=== PATIENT | male | born 1965 | race Caucasian/White ===

== ENCOUNTER 2020-12-11 18:43 | Emergency (ER) | payer MEDICAID, SELFPAY ==
[2020-12-11 18:50] VITALS: BP 135/87; PULSE 76; RESP 16; TEMP 36.5; O2SAT 100
--- NOTE | 2020-12-12 00:05 | PC.NURSE ---
1924 upon entering room to do ekg , noted pt had eloped. checked lobby, did not respond when name called.
== END 2020-12-12 00:05 | disposition left against medical advice (07) ==
PROVIDERS: Emergency Provider Emergency Medicine
DX: M79.89 Other specified soft tissue disorders (principal)
CPT/HCPCS: 93005; 99199

== ENCOUNTER 2021-03-18 11:33 | Emergency (ER) | payer OTHER, SELFPAY ==
[2021-03-18 11:45] VITALS: BP 125/80; PULSE 60; RESP 20; TEMP 36.9; O2SAT 97
--- NOTE | 2021-03-18 11:54 | ED.GENADULT ---
HPI - General Adult General Stated complaint: mahin feet swelling Source: patient Mode of arrival: ambulatory Limitations: no limitations History of Present Illness HPI narrative: Shekhar is a 55M with a PMH of mild tobacco use that presented to the ED with concerns of ankle swelling off an on for about a month. He does not have any today. He rode his bike here from [place] (7 miles away). He has mild lower extremity swelling that comes and goes. It is worse when he sits with his feet dangling. He denies CP, SOB, orthopnea, exercise intolerance, lightheadedness, pain, nausea and vomiting. Related Data Home Medications Medication Instructions Recorded Confirmed No Home Medications 12/11/20 12/11/20 Allergies Allergy/AdvReac Type Severity Reaction Status Date / Time No Known Allergies Allergy Verified 12/11/20 18:53 Review of Systems Constitutional: Constitutional: Reports no additional constitutional complaints Eyes: Eyes: Reports no additional eye complaints ENT: Reports system reviewed and no additional complaints, except as documented Cardiovascular: Cardiovascular: Reports as per HPI Respiratory: Respiratory: Reports no additional respiratory complaints Gastrointestinal: Gastrointestinal: Reports no additional gastrointestinal complaints Genitourinary: Genitourinary: Reports no additional male genitourinary complaints Musculoskeletal: Musculoskeletal: Reports no additional musculoskeletal complaints Integumentary/Breasts: Skin/Breast: Reports system reviewed and no additional complaints, except as docu Neurologic: Reports system reviewed and no additional complaints, except as documented Psychiatric: Psychiatric: Reports no additional psychiatric complaints Endocrine: Endocrine: Reports no additional endocrine complaints Hematologic/Lymphatic: Hematologic/Lymphatic: Reports no additional hematologic/lymphatic complaints Allergic/Immunologic: Allergic/Immunologic: Reports no additional allergic/immunologic complaints Exam Const: General: no acute distress and alert Orientation/consciousness: patient oriented x3 Limitations: No altered mental status HENMT: Head: normal to inspection Other: atraumatic Eyes: Conjunctivae: conjunctivae normal Pupils: Equal, round and reactive pupils present EOM: EOMs intact bilaterally Neck: Neck: normal visual inspection Chest: Chest palpation & inspection: normal inspection of the chest Resp: Effort & Inspection: normal respiratory effort Auscultation: clear to auscultation bilaterally Cardio: Rate: regular rate Rhythm: regular rhythm GI: Inspection: non-distended GI Palp: Yes Soft to palpation and No Tenderness to palpation present (GI) Skin: General skin exam: normal color Rashes: no rashes Neuro: General: patient oriented x3, moves all extremities and CN's II-XI intact bilaterally Extrem: General: normal to inspection Other: No lower extremity edema noted Psych: Mental Status: mental status grossly normal Discharge Plan Discharge Clinical Impression: Venous insufficiency Patient Disposition: Home, Self-Care Condition: Stable Instructions: Antibiotic Form, Venous Insufficiency (DC) Additional Instructions: Please return to the emergency department for any new, concerning, or worsening symptoms. Please by compression stockings at a pharmacy or medical goods store and keep your legs propped up at night. Prescriptions: No Action No Home Medications RF: 0 Follow-up/Referrals: UNKNOWN,DOCTOR [Primary Care Provider] -
== END 2021-03-18 12:05 | disposition home or self-care (01) ==
PROVIDERS: Emergency Provider Family Medicine
DX: I87.2 Venous insufficiency (chronic) (peripheral) (principal)
CPT/HCPCS: 99281; 99282